=== PATIENT | male | born 1985 | race Caucasian/White ===

== ENCOUNTER 2024-03-14 03:16 | Emergency (ER) | payer MEDICAID ==
[2024-03-14 03:28] VITALS: TEMP 98.4
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
[2024-03-14] MEDS ORDERED: Norflex 60 MG/2 ML ONE (03:54)
[2024-03-14] MEDS ORDERED: ZOFRAN ODT 4 MG ONE (03:54)
[2024-03-14] MEDS ORDERED: MORPHINE SULFATE 4 MG INJ ONE (03:55)
[2024-03-14] MEDS: Norflex 60 MG/2 ML IM ONE (04:01)
[2024-03-14] MEDS: MORPHINE SULFATE 4 MG INJ IM ONE (04:03)
[2024-03-14] MEDS: ZOFRAN ODT 4 MG PO ONE (04:04)
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
[2024-03-14 06:47] VITALS: O2SAT 100
[2024-03-14] MEDS ORDERED: MORPHINE SULFATE 2 MG INJ ONE (07:04)
[2024-03-14] MEDS ORDERED: BACTRIM DS TABLET PO ONE (07:04)
[2024-03-14] MEDS: BACTRIM DS TABLET PO ONE (07:07)
[2024-03-14] MEDS: MORPHINE SULFATE 2 MG INJ IM ONE (07:07)
[2024-03-14] MEDS ORDERED: PERCOCET TABLET 5/325MG ONE (07:13)
[2024-03-14 07:14] VITALS: BP 154/94; PULSE 76; RESP 14
[2024-03-14] MEDS: PERCOCET TABLET 5/325MG PO STA (07:14)
== END 2024-03-14 07:29 | disposition home or self-care (01) ==
LOC: ED 03:16
DX: S42.321A Displaced transverse fracture of shaft of humerus, right arm, initial encounter for closed fracture (principal); V17.0XXA Pedal cycle driver injured in collision with fixed or stationary object in nontraffic accident, initial encounter; Y93.55 Activity, bike riding; Z79.891 Long term (current) use of opiate analgesic; Z72.0 Tobacco use
CPT/HCPCS: 73200; 96372; 99284; J2270; J2360; Q0162; A9270-GY